=== PATIENT | female | born 1960 | race Caucasian/White ===

== ENCOUNTER 2021-08-26 10:07 | Observation (INO) ==
[2021-08-26] MEDS ORDERED: ASPIRIN 325 MG TABLET PO STA (10:46)
[2021-08-26 11:18] LABS: Eosinophils % 0.5 % (0.00-10.9); Hemoglobin 13.7 GM/DL (12.0-16.0); Immature Granulocytes % 0.5 %; Immature Granulocytes Absolute 0.02 #; Lymphocytes # 1.1 10*3/uL (1.4-4.0); Lymphocytes % 26.8 % (21.3-54.2); Mean Corpuscular HGB Conc 31.9 GM/DL (32-36); Mean Corpuscular Volume 88.7 FL (87-102); Mean Platelet Volume 11.4 FL (9.6-12.0); Monocytes # 0.3 10*3/uL (0.11-0.8); Monocytes % 6.7 % (1.7-12.7); Neutrophils % 64.5 % (38.7-73.9); Platelet Count 240 T/CUMM (130-400); Red Blood Count 4.85 MC/CUMM (3.8-5.5); Red Cell Distribution Width 13.2 % (9.3-17.3); White Blood Count 4.2 T/CUMM (4-12)
[2021-08-26] MEDS ORDERED: NITROGLYCERIN SL 0.4 MG TABLET SL ONE (11:44)
[2021-08-26 11:50] LABS: Bilirubin,Total 1.6 MG/DL (0.20-1.00); Calcium 9.5 MG/DL (8.5-10.1); Osmolality,Calculated 280.3 MOS/KG (273-304); Potassium 3.9 MMOL/L (3.5-5.1); Total Protein 7.2 G/DL (6.4-8.2)
[2021-08-26] MEDS ORDERED: guaiFENesin/DM ER 600-30 MG TABLET PO PRN (12:26)
[2021-08-26] MEDS ORDERED: ALUMINUM/MAGNES/SIMETH MAX STR 30 ML UDCUP PO PRN (12:26)
[2021-08-26] MEDS ORDERED: DOCUSATE SODIUM 100 MG CAPSULE PO PRN (12:26)
[2021-08-26] MEDS ORDERED: ACETAMINOPHEN 325 MG TABLET PO PRN (12:26)
[2021-08-26] MEDS ORDERED: diphenhydrAMINE CAP 25 MG CAPSULE PO PRN (12:26)
[2021-08-26] MEDS ORDERED: PROMETHAZINE 25 MG TABLET PO PRN (12:26)
[2021-08-26] MEDS ORDERED: MAGNESIUM SULF RIDER 4 GM/100 ML PREMIX IV PRN (12:26)
[2021-08-26] MEDS ORDERED: hydrALAZINE 20 MG/1 ML VIAL IV PRN (12:26)
[2021-08-26] MEDS ORDERED: MAGNESIUM SULF RIDER 2 GM/50 ML PREMIX IV PRN (12:26)
[2021-08-26] MEDS ORDERED: POTASSIUM CHLORIDE 20 MEQ TABLET PO PRN (12:26)
[2021-08-26] MEDS ORDERED: ZALEPLON 5 MG CAPSULE PO PRN (12:26)
[2021-08-26] MEDS ORDERED: ONDANSETRON 4 MG/2 ML VIAL IV PRN (12:26)
[2021-08-26] MEDS: ASCORBIC ACID 500 MG TABLET PO SCH (21:10)
[2021-08-26] MEDS: METOPROLOL TARTRATE 25 MG TABLET PO SCH (21:11)
[2021-08-27] MEDS ORDERED: CHOLECALCIFEROL 1,000 UNIT TABLET PO SCH (09:00)
[2021-08-27] MEDS: ASCORBIC ACID 500 MG TABLET PO SCH (10:19)
[2021-08-27] MEDS: METOPROLOL TARTRATE 25 MG TABLET PO SCH (10:20)
[2021-08-27 10:46] VITALS: BP 113/78
== END 2021-08-27 11:35 | disposition home or self-care (01) ==
LOC: N.ED 10:07 → N.EDINP 10:07 → N.TELEN 15:15
PROVIDERS: ADMIT Internal Medicine Cardiovascular Disease; ATTEND Internal Medicine Cardiovascular Disease